=== PATIENT | male | born 1985 | race Caucasian/White ===

== ENCOUNTER 2017-11-12 00:31 | Emergency (ER) | payer OTHER ==
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
[2017-11-12 00:57] VITALS: BP 143/102; PULSE 98; TEMP 97.6; BMI 28.2
[2017-11-12] MEDS ORDERED: IBUPROFEN 600 MG TABLET (FP) PO ONE ×2 (01:01→01:05)
[2017-11-12] MEDS ORDERED: METHOCARBAMOL 500 MG TABLET PO ONE (01:01)
[2017-11-12] MEDS ORDERED: METHOCARBAMOL 500 MG TABLET ONE (01:04)
== END 2017-11-12 02:37 | disposition home or self-care (01) ==
LOC: JER 00:31
DX: S39.012A Strain of muscle, fascia and tendon of lower back, initial encounter (principal); V63.5XXA Driver of heavy transport vehicle injured in collision with car, pick-up truck or van in traffic accident, initial encounter; Y92.414 Local residential or business street as the place of occurrence of the external cause; Y99.0 Civilian activity done for income or pay; Y93.89 Activity, other specified; I10 Essential (primary) hypertension
CPT/HCPCS: 72100-TC; 99283-25